=== PATIENT | male | born 1935 | race Caucasian/White ===

== ENCOUNTER 2018-04-02 17:59 | Emergency (ER) | payer MEDICAID, MEDICARE, OTHER ==
[~2018-04-02] VITALS: Ht 175.3 cm; Wt 72.0 kg
[~2018-04-02 17:59] MED LIST: AMIT10TA6 PO; ATOR10TA69 PO; LEVO25TA7 PO
[2018-04-02] MEDS ORDERED: CEPHALEXIN 250MG CAPSULE PO ONE (18:30)
[2018-04-02] MEDS ORDERED: TETANUS, DIPHTHERIA, PERTUSSIS VAC/PF 0.5ML (>7YR OLD) IM ONE (18:30)
[2018-04-02] MEDS ORDERED: BACITRACIN ZINC OINT UDPKT TOP ONE (18:30)
[2018-04-02 22:35] VITALS: BP 136/75
== END 2018-04-02 22:36 ==
LOC: ER 19:16
DX: S50.312A Abrasion of left elbow, initial encounter (principal); R94.31 Abnormal electrocardiogram [ECG] [EKG]; E78.00 Pure hypercholesterolemia, unspecified; Z88.8 Allergy status to other drugs, medicaments and biological substances; Z85.51 Personal history of malignant neoplasm of bladder; W01.0XXA Fall on same level from slipping, tripping and stumbling without subsequent striking against object, initial encounter; Y93.89 Activity, other specified; Y92.128 Other place in nursing home as the place of occurrence of the external cause
CPT/HCPCS: 90471; 90715; 93005; 99285

== ENCOUNTER 2021-12-01 14:52 | Emergency (ER) | payer OTHER ==
[~2021-12-01] VITALS: Ht 170.2 cm; Wt 73.0 kg
[2021-12-01] MEDS ORDERED: BACITRACIN ZINC OINT UDPKT TOP ONE (15:45)
[2021-12-01] MEDS ORDERED: LIDOCAINE HCL/EPINEPHRINE 1%-EPI 1:100,000 20 ML VIAL INFIL ONE (15:45)
[2021-12-01] MEDS ORDERED: ACETAMINOPHEN 325MG TABLET PO ONE (16:30)
[2021-12-01 18:00] VITALS: BP 136/87
== END 2021-12-01 23:11 ==
LOC: ER 15:10
DX: S01.01XA Laceration without foreign body of scalp, initial encounter (principal); S49.82XA Other specified injuries of left shoulder and upper arm, initial encounter; S99.812A Other specified injuries of left ankle, initial encounter; S99.822A Other specified injuries of left foot, initial encounter; I10 Essential (primary) hypertension; E78.00 Pure hypercholesterolemia, unspecified; E03.9 Hypothyroidism, unspecified; Z99.3 Dependence on wheelchair; Z88.8 Allergy status to other drugs, medicaments and biological substances; W05.0XXA Fall from non-moving wheelchair, initial encounter; Y93.89 Activity, other specified; Y92.128 Other place in nursing home as the place of occurrence of the external cause
CPT/HCPCS: 12001; 70450; 72125; 73030; 73610; 73630; 99284; J3490

== ENCOUNTER 2021-12-05 08:26 | Emergency (ER) | payer OTHER ==
[~2021-12-05] VITALS: Ht 167.6 cm; Wt 67.0 kg
[2021-12-05 08:29] VITALS: BP 118/63
[2021-12-05] MEDS ORDERED: TOPUD PO (08:54)
[2021-12-05] MEDS ORDERED: ACETAMINOPHEN 325MG TABLET PO ONE (09:00)
== END 2021-12-05 09:59 | disposition home or self-care (01) ==
LOC: ER 08:40
DX: Z48.00 Encounter for change or removal of nonsurgical wound dressing (principal)
CPT/HCPCS: 99283

== ENCOUNTER 2022-11-20 10:46 | Emergency (ER) | payer MEDICARE, OTHER ==
[~2022-11-20] VITALS: Ht 180.3 cm; Wt 73.0 kg
[~2022-11-20 10:46] MED LIST changes: +TOPUD PO
[2022-11-20 10:53] VITALS: O2SAT 96
[2022-11-20] MEDS ORDERED: LIDOCAINE HCL/PF 1% 10 MG/ML 5ML VIAL INFIL ONE (11:15)
[2022-11-20] MEDS ORDERED: TOPUD PO (12:39)
[2022-11-20 13:54] VITALS: BP 120/60; PULSE 76; RESP 16; TEMP 97.9
== END 2022-11-20 13:52 | disposition home or self-care (01) ==
LOC: ER 10:46
DX: S01.01XA Laceration without foreign body of scalp, initial encounter (principal); R51.9 Headache, unspecified; E78.00 Pure hypercholesterolemia, unspecified; E11.9 Type 2 diabetes mellitus without complications; Z88.3 Allergy status to other anti-infective agents; Z98.890 Other specified postprocedural states; Z86.39 Personal history of other endocrine, nutritional and metabolic disease; W01.0XXA Fall on same level from slipping, tripping and stumbling without subsequent striking against object, initial encounter; Y93.89 Activity, other specified; Y92.89 Other specified places as the place of occurrence of the external cause; Y99.8 Other external cause status
CPT/HCPCS: 12001; 70450; 72125; 72170; 73120; 73560; 99284; J3490